=== PATIENT | female | born 1950 | race Caucasian/White ===

== ENCOUNTER 2019-12-04 20:09 | Inpatient (IN) ==
[2019-12-04 20:45] LABS: Basophils # 0.1 K/mcL (0.0-0.2); Basophils % 0.4 %; Eosinophils # 0.1 K/mcL (0.0-0.6); Hematocrit 43.2 % (35.3-44.9); Hemoglobin 14.3 g/dL (11.5-15.4); Immature Granulocytes % 0.3 % (0-4); Lymphocytes # 3.2 K/mcL (0.6-4.6); Lymphocytes % 23.7 %; Mean Corpuscular HGB Conc 33.1 g/dL (31.6-35.5); Mean Corpuscular Volume 96.6 fL (83.0-100.0); Mean Platelet Volume 9.6 fL (9.4-12.4); Monocytes # 0.9 K/mcL (0.0-1.3); Platelet Count 251 K/mcL (140-400); Red Blood Count 4.47 M/mcL (3.82-4.97); Segmented Neutrophils % 67.6 %; White Blood Count 13.4 K/mcL (4.3-11.1)
[2019-12-04] MEDS ORDERED: Isovue-370 500 ML BOTTLE IVP ONE (20:45)
[2019-12-04 20:57] LABS: Prothrombin Time 11.2 Seconds (9.4-12.1)
[2019-12-04 21:00] LABS: Activated Partial Thrombo Time 26.8 Seconds (26.0-36.0)
[2019-12-04 21:10] LABS: Calcium 10.4 mg/dL (8.6-10.3); Potassium 3.8 mEq/L (3.5-5.1)
[2019-12-04 21:20] LABS: Troponin I 2.27 ng/mL (< 0.04)
[2019-12-04] MEDS ORDERED: *HR* Heparin 5,000 UNIT/ML VIAL IVP PRN ×2 (21:37)
[2019-12-04] MEDS ORDERED: *HR* Heparin 5,000 UNIT/ML VIAL IVP ONE (21:37)
[2019-12-04] MEDS: Heparin 25,000UNIT/250ML 1/2NS 25,000 UNIT/250 ML IV.SOLN IVC SCH (21:54)
[2019-12-04] MEDS ORDERED: *HR* Metoprolol 5 MG/5 ML VIAL IVP ONE (21:58)
[2019-12-04] MEDS ORDERED: Perflutren Lipid Microsphere 1.3 ML in 0.9 % Sodium Chloride 8.7 ML IVP PRN (22:10)
[2019-12-04] MEDS ORDERED: Nitroglycerin 0.4 MG TAB.SUBL SL PRN (22:10)
[2019-12-05] MEDS ORDERED: 0.9 % Sodium Chloride 1,000 ML IVC SCH ×2 (03:30→15:30)
[2019-12-05 03:47] LABS: Basophils # 0.1 K/mcL (0.0-0.2); Basophils % 0.6 %; Eosinophils # 0.1 K/mcL (0.0-0.6); Eosinophils % 0.7 %; Hematocrit 41.6 % (35.3-44.9); Hemoglobin 13.7 g/dL (11.5-15.4); Immature Granulocytes % 0.2 % (0-4); Lymphocytes # 2.9 K/mcL (0.6-4.6); Lymphocytes % 26.4 %; Mean Corpuscular HGB Conc 32.9 g/dL (31.6-35.5); Mean Corpuscular Hemoglobin 32.1 pg (28.0-33.3); Mean Corpuscular Volume 97.4 fL (83.0-100.0); Mean Platelet Volume 9.8 fL (9.4-12.4); Monocytes # 0.8 K/mcL (0.0-1.3); Monocytes % 7.6 %; Platelet Count 239 K/mcL (140-400); Red Blood Count 4.27 M/mcL (3.82-4.97); Segmented Neutrophils % 64.5 %; White Blood Count 10.9 K/mcL (4.3-11.1)
[2019-12-05 04:09] LABS: Albumin 4.1 g/dL (3.5-5.7); Albumin/Globulin Ratio 1.3 (1.1-2.2); Bilirubin,Total 0.4 mg/dL (0.3-1.0); Calcium 10.3 mg/dL (8.6-10.3); Chol/HDL Ratio 6.2 (0-4.9); Globulin 3.2 g/dL (2.4-3.5); Potassium 4.4 mEq/L (3.5-5.1); Total Protein 7.3 g/dL (6.4-8.9)
[2019-12-05 04:22] LABS: Thyroid Stimulating Hormone 1.241 mcIU/mL (0.340-5.600)
[2019-12-05 07:06] LABS: Estimated Average Glucose 100 mg/dl
[2019-12-05] MEDS: Aspirin Enteric Coated 81 MG Tablet PO SCH (09:30)
[2019-12-05] MEDS ORDERED: *HR* Midazolam HCl 2 MG/2 ML VIAL ONE (14:12)
[2019-12-05] MEDS ORDERED: *HR* FentaNYL (PF) 100 MCG/2 ML VIAL ONE (14:12)
[2019-12-05] MEDS ORDERED: Heparin 1,000 UNITS/500 mL 500 ML ONE (14:13)
[2019-12-05] MEDS ORDERED: *HR* Heparin 10,000 UNIT/10 ML VIAL ONE (14:13)
[2019-12-05] MEDS ORDERED: Nitroglycerin 1,000 MCG/10 ML VIAL IV ONE (14:13)
[2019-12-05] MEDS ORDERED: ISOVUE-370 200 ML INFUS..BTL ONE (14:13)
[2019-12-05] MEDS ORDERED: 0.9 % Sodium Chloride 2,000 ML ONE (14:13)
[2019-12-05] MEDS: Heparin 25,000UNIT/250ML 1/2NS 25,000 UNIT/250 ML IV.SOLN IVC SCH (21:45)
[2019-12-06 04:11] LABS: Hematocrit 35.8 % (35.3-44.9); Mean Corpuscular HGB Conc 31.8 g/dL (31.6-35.5); Mean Corpuscular Hemoglobin 31.5 pg (28.0-33.3); Mean Corpuscular Volume 98.9 fL (83.0-100.0); Mean Platelet Volume 9.6 fL (9.4-12.4); Platelet Count 184 K/mcL (140-400); Red Blood Count 3.62 M/mcL (3.82-4.97); Red Cell Distribution Width 12.2 % (11.5-14.5); White Blood Count 8.9 K/mcL (4.3-11.1)
[2019-12-06 04:13] LABS: Hemoglobin 11.4 g/dL (11.5-15.4)
[2019-12-06 04:25] LABS: Calcium 8.8 mg/dL (8.6-10.3)
[2019-12-06 08:19] LABS: Prothrombin Time 11.9 Seconds (9.4-12.1)
[2019-12-06 08:29] LABS: Activated Partial Thrombo Time 48.4 Seconds (26.0-36.0)
[2019-12-06] MEDS: Aspirin Enteric Coated 81 MG Tablet PO SCH (09:35)
[2019-12-06] MEDS: Heparin 25,000UNIT/250ML 1/2NS 25,000 UNIT/250 ML IV.SOLN IVC SCH (09:37)
[2019-12-06 13:58] LABS: Bacteria,Urine Few per hpf (None-Few); Bilirubin,Urine Negative (Negative); Blood,Urine Small (Negative); Clarity,Urine Clear (Clear); Color,Urine Light-Yellow (Yellow); Glucose,Urine (UA) Normal (Normal); Ketones,Urine Negative (Negative); Leukocyte Esterase,Urine Negative (Negative); Nitrite,Urine Negative (Negative); Protein,Urine Negative (Neg-Trace); RBC,Urine 0-3 per hpf (0-3); Specific Gravity,Urine 1.017 (1.010-1.025); Squamous Epithelial Cell,Urine Few per hpf (None-Few); Urobilinogen,Urine Normal (Normal); WBC,Urine 0-3 per hpf (0-3)
[2019-12-06 13:59] LABS: Protein/Creatinine Ratio,Urine 0.08 mg/mg (0.00-0.20); Sodium, Urine 108.7 mEq/L
[2019-12-06] MEDS: Chlorhexidine Rinse 15 ML MOUTHWASH MM SCH (23:59)
[2019-12-07 00:51] LABS: Basophils # 0.1 K/mcL (0.0-0.2); Basophils % 0.6 %; Eosinophils # 0.2 K/mcL (0.0-0.6); Eosinophils % 1.9 %; Hemoglobin 11.3 g/dL (11.5-15.4); Immature Granulocytes % 0.2 % (0-4); Lymphocytes # 3.7 K/mcL (0.6-4.6); Mean Corpuscular HGB Conc 32.3 g/dL (31.6-35.5); Mean Corpuscular Volume 99.2 fL (83.0-100.0); Monocytes # 0.8 K/mcL (0.0-1.3); Monocytes % 8.8 %; Neutrophils # 4.1 K/mcL (1.6-8.9); Platelet Count 178 K/mcL (140-400); Red Blood Count 3.53 M/mcL (3.82-4.97); Red Cell Distribution Width 12.2 % (11.5-14.5); Segmented Neutrophils % 46.5 %; White Blood Count 8.8 K/mcL (4.3-11.1)
[2019-12-07 01:11] LABS: Calcium 8.8 mg/dL (8.6-10.3); Potassium 3.6 mEq/L (3.5-5.1)
[2019-12-07 01:12] LABS: Uric Acid 6.7 mg/dL (2.3-7.6)
[2019-12-07 01:40] LABS: Creatinine,Urine 61 mg/dL; Microalbum/Creatinine Ratio,Ur 13 mcg/mg (Less than 30); Microalbumin,Urine 8 mg/L
[2019-12-07] MEDS: Chlorhexidine Rinse 15 ML MOUTHWASH MM SCH ×2 (08:01→19:41)
[2019-12-07] MEDS: Aspirin Enteric Coated 81 MG Tablet PO SCH (08:01)
[2019-12-07] MEDS: Heparin 25,000UNIT/250ML 1/2NS 25,000 UNIT/250 ML IV.SOLN IVC SCH (08:15)
[2019-12-07] MEDS ORDERED: Metoprolol XL (24 HR) Succ 25 MG TAB.ER.24H PO SCH (09:00)
[2019-12-07] MEDS ORDERED: NiCARdipine 2.5 MG/10 ML Syringe IVPB ONE (09:39)
[2019-12-07] MEDS ORDERED: *HR* FentaNYL (PF) 1,000 MCG/20 ML VIAL ONE (09:41)
[2019-12-07] MEDS ORDERED: *HR* Midazolam HCl 5 MG/5 ML VIAL IVP ONE (09:41)
[2019-12-07] MEDS ORDERED: *HR* PHENYLEPHRINE 1,000 MCG/10 ML SYRINGE IVP ONE (09:42)
[2019-12-07] MEDS ORDERED: *HR* Rocuronium Bromide 50 MG/5 ML VIAL ONE (09:42)
[2019-12-07] MEDS ORDERED: EPINEPHrine 1 MG/ML VIAL ONE (09:47)
[2019-12-07] MEDS ORDERED: Papaverine 60 MG/2 ML VIAL IVP ONE (10:20)
[2019-12-07] MEDS ORDERED: CeFAZolin Syr 2,000MG/20 ML 2,000 MG/20 ML SYRINGE IVPB ONE (12:00)
[2019-12-07 12:31] LABS: ABG Base Excess -2 mEq/L (-2 to 3); ABG Chloride 108 mEq/L (98-107); ABG Glucose 92 mg/dL (60-95); ABG HCO3 23 mEq/L (21-27); ABG Ionized Calcium 1.22 mmol/L (1.15-1.35); ABG Oxygen Saturation 100 % (95-98); ABG PCO2 36 mmHg (35-45); ABG PH 7.41 pH Units (7.32-7.45); ABG PO2 504 mmHg (85-104); ABG TCO2 24 mEq/L (20-26)
[2019-12-07] MEDS ORDERED: Norepinephrine 4 MG in 0.9 % Sodium Chloride 250 ML IVC PRN (12:40)
[2019-12-07] MEDS ORDERED: Dextrose 50 % in Water (Vial) 30 ML, Sodium Bicarbonate 20 MEQ, Lidocaine 1% 5 ML, Insu... TH ONE ×3 (12:40)
[2019-12-07] MEDS ORDERED: Heparin 15,000 UNIT in 0.9 % Sodium Chloride 500 ML IV ONE (12:40)
[2019-12-07] MEDS ORDERED: Insulin Human Regular 100 UNIT in 0.9 % Sodium Chloride 100 ML IV PRN (12:40)
[2019-12-07] MEDS ORDERED: Dextrose 50 % in Water (Vial) 30 ML, Sodium Bicarbonate 20 MEQ, Potassium Chloride 15 M... TH ONE (12:40)
[2019-12-07 13:23] LABS: ABG Base Excess -2 mEq/L (-2 to 3); ABG Chloride 112 mEq/L (98-107); ABG Glucose 108 mg/dL (60-95); ABG HCO3 21 mEq/L (21-27); ABG Ionized Calcium 1.04 mmol/L (1.15-1.35); ABG Oxygen Saturation 100 % (95-98); ABG PCO2 29 mmHg (35-45); ABG PH 7.47 pH Units (7.32-7.45); ABG PO2 206 mmHg (85-104); ABG TCO2 22 mEq/L (20-26)
[2019-12-07] MEDS ORDERED: Tranexamic Acid 1,000 MG/10 ML VIAL ONE (13:32)
[2019-12-07] MEDS ORDERED: niCARdipine 20 MG/200 ML MLS IVC ONE (13:41)
[2019-12-07] MEDS ORDERED: Albumin Human 5% 12.5 GM/250 ML IV.SOLN ONE (13:41)
[2019-12-07 14:02] LABS: ABG Base Excess 5 mEq/L (-2 to 3); ABG Chloride 101 mEq/L (98-107); ABG Glucose 203 mg/dL (60-95); ABG HCO3 27 mEq/L (21-27); ABG Ionized Calcium 0.97 mmol/L (1.15-1.35); ABG Oxygen Saturation 100 % (95-98); ABG PCO2 31 mmHg (35-45); ABG PH 7.55 pH Units (7.32-7.45); ABG PO2 604 mmHg (85-104); ABG TCO2 28 mEq/L (20-26)
[2019-12-07 14:49] LABS: ABG Base Excess 1 mEq/L (-2 to 3); ABG Chloride 106 mEq/L (98-107); ABG Glucose 119 mg/dL (60-95); ABG HCO3 25 mEq/L (21-27); ABG Ionized Calcium 1.07 mmol/L (1.15-1.35); ABG Oxygen Saturation 100 % (95-98); ABG PCO2 39 mmHg (35-45); ABG PH 7.42 pH Units (7.32-7.45); ABG PO2 533 mmHg (85-104); ABG TCO2 27 mEq/L (20-26)
[2019-12-07] MEDS ORDERED: Potassium Chloride 40 MEQ/200 ML BAG IVPB PRN (15:27)
[2019-12-07] MEDS ORDERED: Ondansetron 4 MG/2 ML VIAL IVP PRN (15:27)
[2019-12-07] MEDS ORDERED: Acetaminophen 325 MG TABLET PO PRN (15:27)
[2019-12-07] MEDS ORDERED: Insulin Regular, Human 100 UNIT/ML IV PRN (15:27)
[2019-12-07] MEDS ORDERED: *HR* OxyCODONE/APAP 5/325 TABLET PO PRN (15:27)
[2019-12-07] MEDS ORDERED: *HR* Promethazine 25 MG/ML VIAL IM PRN (15:27)
[2019-12-07] MEDS ORDERED: Naloxone 0.4 MG/ML INJ IVP PRN (15:27)
[2019-12-07] MEDS ORDERED: *HR* FentaNYL (PF) 100 MCG/2 ML VIAL IVP PRN (15:27)
[2019-12-07] MEDS ORDERED: *HR* Dextrose 50 % in Water (Vial) 50 ML VIAL IVP PRN (15:27)
[2019-12-07] MEDS ORDERED: Insulin Human Regular 100 UNIT in 0.9 % Sodium Chloride 100 ML IVC SCH (15:30)
[2019-12-07] MEDS: Albumin Human 5% 12.5 GM/250 ML IV.SOLN IVPB PRN ×2 (15:35→21:35)
[2019-12-07] MEDS ORDERED: Tranexamic Acid 1,000 MG/10 ML VIAL IR ONE (15:39)
[2019-12-07] MEDS ORDERED: Lidocaine 2% Syringe 100 MG/5 ML IVP ONE (15:39)
[2019-12-07] MEDS ORDERED: *HR* Heparin 10,000 UNIT/10 ML VIAL IR ONE (15:39)
[2019-12-07] MEDS ORDERED: *HR* Phenylephrine 10 MG/ML VIAL IVC ONE (15:39)
[2019-12-07] MEDS ORDERED: *HR* Magnesium Sulfate 2 GM/50 ML PIGGYBACK IVPB ONE (15:39)
[2019-12-07] MEDS ORDERED: Albumin Human 25% 25 GM/100 ML IV.SOLN IVPB ONE (15:39)
[2019-12-07] MEDS ORDERED: Mannitol 25% vial 12.5 GM/50 ML VIAL IVPB ONE (15:39)
[2019-12-07 15:51] LABS: Hematocrit 28.9 % (35.3-44.9); Immature Granulocytes % 0.6 % (0-4); Monocytes % 5.2 %; Red Cell Distribution Width 12.4 % (11.5-14.5)
[2019-12-07 15:53] LABS: Basophils % 0.4 %; Eosinophils # 0.1 K/mcL (0.0-0.6); Eosinophils % 0.9 %; Hemoglobin 9.8 g/dL (11.5-15.4); Immature Platelets 2.7 % (1.1-6.1); Lymphocytes # 2.3 K/mcL (0.6-4.6); Lymphocytes % 22.2 %; Mean Corpuscular HGB Conc 33.9 g/dL (31.6-35.5); Mean Corpuscular Volume 94.4 fL (83.0-100.0); Mean Platelet Volume 9.6 fL (9.4-12.4); Monocytes # 0.5 K/mcL (0.0-1.3); Neutrophils # 7.3 K/mcL (1.6-8.9); Platelet Count 98 K/mcL (140-400); Red Blood Count 3.06 M/mcL (3.82-4.97); Segmented Neutrophils % 70.7 %; White Blood Count 10.3 K/mcL (4.3-11.1)
[2019-12-07 15:53] LABS: ABG Base Excess 1 mEq/L (-2 to 3); ABG HCO3 24 mEq/L (21-27); ABG Oxygen Saturation 100 % (95-98); ABG PCO2 32 mmHg (35-45); ABG PH 7.48 pH Units (7.32-7.45); ABG PO2 224 mmHg (85-104); ABG TCO2 25 mEq/L (20-26); Blood Gas Modality ASSIST CONTROL; Blood Gas VT 500 cc
[2019-12-07 16:00] LABS: INR 1.5; Prothrombin Time 17.3 Seconds (9.4-12.1)
[2019-12-07 16:03] LABS: Activated Partial Thrombo Time 24.6 Seconds (26.0-36.0)
[2019-12-07 16:08] LABS: BUN/Creatinine Ratio 19 (6-26); Blood Urea Nitrogen 19 mg/dL (8-23); Calcium 8.3 mg/dL (8.6-10.3); Carbon Dioxide 24 mEq/L (23-29); Chloride 109 mEq/L (98-107); Glucose 71 mg/dL (70-105); Magnesium 2.3 mg/dL (1.6-2.6); Osmolality,Calculated 295 (280-300); Potassium 3.5 mEq/L (3.5-5.1); Sodium 142 mEq/L (136-145); eGFR For African Americans > 60 (> 60); eGFR For Non-African Americans 54 (> 60)
[2019-12-07] MEDS: 0.9 % Sodium Chloride 1,000 ML IVC SCH (18:01)
[2019-12-07] MEDS: CeFAZolin 2 GM/120 ML BAG IVPB SCH (19:42)
[2019-12-07 20:11] LABS: ABG Base Excess 2 mEq/L (-2 to 3); ABG HCO3 26 mEq/L (21-27); ABG Oxygen Saturation 99 % (95-98); ABG PCO2 37 mmHg (35-45); ABG PH 7.45 pH Units (7.32-7.45); ABG PO2 146 mmHg (85-104); ABG TCO2 27 mEq/L (20-26); Blood Gas Modality ASSIST CONTROL; Blood Gas VT 500 cc
[2019-12-07] MEDS: niCARdipine 20 MG/200 ML MLS IVC SCH ×2 (21:35→23:39)
[2019-12-07] MEDS: Norepinephrine 4 MG/254 ML IV.SOLN IVC SCH (21:36)
[2019-12-07 22:18] LABS: ABG Base Excess 1 mEq/L (-2 to 3); ABG HCO3 27 mEq/L (21-27); ABG Oxygen Saturation 94 % (95-98); ABG PCO2 44 mmHg (35-45); ABG PH 7.39 pH Units (7.32-7.45); ABG PO2 73 mmHg (85-104); ABG TCO2 28 mEq/L (20-26)
[2019-12-08] MEDS: niCARdipine 20 MG/200 ML MLS IVC SCH ×2 (03:38→04:18)
[2019-12-08] MEDS: CeFAZolin 2 GM/120 ML BAG IVPB SCH (04:15)
[2019-12-08 04:27] LABS: Basophils % 0.2 %; Hematocrit 32.5 % (35.3-44.9); Hemoglobin 10.9 g/dL (11.5-15.4); Immature Granulocytes % 0.4 % (0-4); Lymphocytes # 0.8 K/mcL (0.6-4.6); Lymphocytes % 7.4 %; Mean Corpuscular HGB Conc 33.5 g/dL (31.6-35.5); Mean Corpuscular Hemoglobin 32.4 pg (28.0-33.3); Mean Corpuscular Volume 96.7 fL (83.0-100.0); Mean Platelet Volume 9.9 fL (9.4-12.4); Monocytes # 0.9 K/mcL (0.0-1.3); Monocytes % 8.1 %; Neutrophils # 9.5 K/mcL (1.6-8.9); Platelet Count 128 K/mcL (140-400); Red Blood Count 3.36 M/mcL (3.82-4.97); Red Cell Distribution Width 12.6 % (11.5-14.5); Segmented Neutrophils % 83.9 %; White Blood Count 11.3 K/mcL (4.3-11.1)
[2019-12-08 04:30] LABS: VBG Ionized Calcium 1.12 mmol/L (1.15-1.35)
[2019-12-08 04:48] LABS: Calcium 8.2 mg/dL (8.6-10.3)
[2019-12-08] MEDS: Albumin Human 5% 12.5 GM/250 ML IV.SOLN IVPB PRN ×2 (06:10→06:28)
[2019-12-08] MEDS: 0.9 % Sodium Chloride 1,000 ML IVC SCH ×3 (06:21→21:49)
[2019-12-08] MEDS: Norepinephrine 4 MG/254 ML IV.SOLN IVC SCH (06:29)
[2019-12-08] MEDS: Chlorhexidine Rinse 15 ML MOUTHWASH MM SCH ×2 (08:20→20:21)
[2019-12-08] MEDS: Aspirin Enteric Coated 81 MG Tablet PO SCH (08:20)
[2019-12-08] MEDS ORDERED: Pantoprazole 40 MG VIAL IVP SCH (09:00)
[2019-12-08] MEDS ORDERED: Acetaminophen 325 MG TABLET PO PRN (10:09)
[2019-12-08] MEDS ORDERED: Dextrose Gel 15 GM/37.5 ML TUBE PO PRN ×2 (10:09)
[2019-12-08] MEDS ORDERED: D5% in Water 1,000 ML IVC PRN (10:09)
[2019-12-08] MEDS ORDERED: *HR* Dextrose 50 % in Water (Vial) 50 ML VIAL IVP PRN (10:09)
[2019-12-08] MEDS ORDERED: Nitroglycerin 0.4 MG TAB.SUBL SL PRN (10:09)
[2019-12-08] MEDS ORDERED: Naloxone 0.4 MG/ML INJ IVP PRN (10:09)
[2019-12-08] MEDS ORDERED: *HR* Promethazine 25 MG/ML VIAL IM PRN (10:09)
[2019-12-08] MEDS ORDERED: Ondansetron 4 MG/2 ML VIAL IVP PRN (10:09)
[2019-12-08] MEDS: Insulin LISPRO 300 UNITS/3 ML VIAL SQ SCH ×4 (11:33→20:22)
[2019-12-08] MEDS ORDERED: Calcium Gluconate 1gm/50mL 1 GM/50 ML BAG IVPB ONE (13:27)
[2019-12-08] MEDS: *HR* OxyCODONE/APAP 5/325 TABLET PO PRN (17:14)
[2019-12-08] MEDS: *HR* Heparin 5,000 UNIT/ML VIAL SQ SCH (17:16)
[2019-12-09] MEDS: *HR* OxyCODONE/APAP 5/325 TABLET PO PRN ×2 (03:33→13:10)
[2019-12-09 03:44] LABS: VBG Ionized Calcium 1.16 mmol/L (1.15-1.35)
[2019-12-09 03:51] LABS: Basophils % 0.4 %; Eosinophils # 0.1 K/mcL (0.0-0.6); Eosinophils % 0.5 %; Hematocrit 28.9 % (35.3-44.9); Immature Granulocytes % 0.6 % (0-4); Lymphocytes # 1.6 K/mcL (0.6-4.6); Lymphocytes % 16.2 %; Mean Corpuscular HGB Conc 32.2 g/dL (31.6-35.5); Mean Corpuscular Hemoglobin 32.6 pg (28.0-33.3); Mean Corpuscular Volume 101.4 fL (83.0-100.0); Mean Platelet Volume 10.3 fL (9.4-12.4); Monocytes % 9.5 %; Neutrophils # 7.4 K/mcL (1.6-8.9); Platelet Count 109 K/mcL (140-400); Red Blood Count 2.85 M/mcL (3.82-4.97); Red Cell Distribution Width 13.1 % (11.5-14.5); Segmented Neutrophils % 72.8 %; White Blood Count 10.1 K/mcL (4.3-11.1)
[2019-12-09 03:54] LABS: Hemoglobin 9.3 g/dL (11.5-15.4)
[2019-12-09 03:59] LABS: Albumin 3.4 g/dL (3.5-5.7); Calcium 8.2 mg/dL (8.6-10.3); Magnesium 1.8 mg/dL (1.6-2.6); Potassium 3.9 mEq/L (3.5-5.1)
[2019-12-09] MEDS: *HR* Heparin 5,000 UNIT/ML VIAL SQ SCH ×2 (05:09→18:15)
[2019-12-09] MEDS: Pantoprazole 40 MG VIAL IVP SCH (08:09)
[2019-12-09] MEDS: Chlorhexidine Rinse 15 ML MOUTHWASH MM SCH ×2 (08:09→20:22)
[2019-12-09] MEDS: Aspirin Enteric Coated 81 MG Tablet PO SCH (08:09)
[2019-12-09] MEDS: Insulin LISPRO 300 UNITS/3 ML VIAL SQ SCH ×4 (08:09→20:24)
[2019-12-09] MEDS: 0.9 % Sodium Chloride 1,000 ML IVC SCH ×3 (11:18→20:22)
[2019-12-10] MEDS: 0.9 % Sodium Chloride 1,000 ML IVC SCH ×3 (04:48→20:57)
[2019-12-10] MEDS: *HR* Heparin 5,000 UNIT/ML VIAL SQ SCH ×2 (04:48→16:26)
[2019-12-10 05:41] LABS: Basophils % 0.4 %; Eosinophils # 0.1 K/mcL (0.0-0.6); Eosinophils % 1.2 %; Hematocrit 26.6 % (35.3-44.9); Hemoglobin 8.7 g/dL (11.5-15.4); Immature Granulocytes % 0.3 % (0-4); Lymphocytes # 1.1 K/mcL (0.6-4.6); Lymphocytes % 14.3 %; Mean Corpuscular HGB Conc 32.7 g/dL (31.6-35.5); Mean Corpuscular Volume 100.8 fL (83.0-100.0); Mean Platelet Volume 10.6 fL (9.4-12.4); Monocytes # 0.8 K/mcL (0.0-1.3); Monocytes % 10.4 %; Neutrophils # 5.7 K/mcL (1.6-8.9); Platelet Count 107 K/mcL (140-400); Red Blood Count 2.64 M/mcL (3.82-4.97); Red Cell Distribution Width 12.9 % (11.5-14.5); Segmented Neutrophils % 73.4 %; White Blood Count 7.8 K/mcL (4.3-11.1)
[2019-12-10 06:03] LABS: BUN/Creatinine Ratio 21 (6-26); Blood Urea Nitrogen 21 mg/dL (8-23); Calcium 7.9 mg/dL (8.6-10.3); Carbon Dioxide 23 mEq/L (23-29); Chloride 109 mEq/L (98-107); Glucose 119 mg/dL (70-105); Osmolality,Calculated 288 (280-300); Potassium 3.7 mEq/L (3.5-5.1); Sodium 137 mEq/L (136-145); eGFR For African Americans > 60 (> 60); eGFR For Non-African Americans 56 (> 60)
[2019-12-10] MEDS: Insulin LISPRO 300 UNITS/3 ML VIAL SQ SCH ×4 (08:04→21:21)
[2019-12-10] MEDS: Pantoprazole 40 MG VIAL IVP SCH (08:11)
[2019-12-10] MEDS: Aspirin Enteric Coated 81 MG Tablet PO SCH (08:11)
[2019-12-10] MEDS: Chlorhexidine Rinse 15 ML MOUTHWASH MM SCH ×2 (08:11→20:56)
[2019-12-11] MEDS: *HR* Heparin 5,000 UNIT/ML VIAL SQ SCH ×2 (05:20→17:02)
[2019-12-11] MEDS: 0.9 % Sodium Chloride 1,000 ML IVC SCH ×3 (05:20→21:38)
[2019-12-11 07:50] LABS: BUN/Creatinine Ratio 19 (6-26); Blood Urea Nitrogen 19 mg/dL (8-23); Calcium 8.1 mg/dL (8.6-10.3); Carbon Dioxide 23 mEq/L (23-29); Chloride 110 mEq/L (98-107); Glucose 120 mg/dL (70-105); Osmolality,Calculated 289 (280-300); Potassium 3.6 mEq/L (3.5-5.1); Sodium 138 mEq/L (136-145); eGFR For African Americans > 60 (> 60); eGFR For Non-African Americans 56 (> 60)
[2019-12-11] MEDS: Chlorhexidine Rinse 15 ML MOUTHWASH MM SCH ×2 (08:44→21:15)
[2019-12-11] MEDS: Pantoprazole 40 MG VIAL IVP SCH (08:45)
[2019-12-11] MEDS: Aspirin Enteric Coated 81 MG Tablet PO SCH (08:45)
[2019-12-11] MEDS: Insulin LISPRO 300 UNITS/3 ML VIAL SQ SCH ×4 (10:02→21:16)
[2019-12-12 05:14] LABS: Basophils % 0.6 %; Eosinophils # 0.2 K/mcL (0.0-0.6); Eosinophils % 2.1 %; Hematocrit 29.5 % (35.3-44.9); Hemoglobin 9.4 g/dL (11.5-15.4); Immature Granulocytes % 0.4 % (0-4); Lymphocytes # 1.6 K/mcL (0.6-4.6); Lymphocytes % 21.7 %; Mean Corpuscular HGB Conc 31.9 g/dL (31.6-35.5); Mean Corpuscular Hemoglobin 31.9 pg (28.0-33.3); Monocytes # 0.7 K/mcL (0.0-1.3); Monocytes % 9.8 %; Neutrophils # 4.7 K/mcL (1.6-8.9); Platelet Count 191 K/mcL (140-400); Red Blood Count 2.95 M/mcL (3.82-4.97); Red Cell Distribution Width 13.1 % (11.5-14.5); Segmented Neutrophils % 65.4 %; White Blood Count 7.2 K/mcL (4.3-11.1)
[2019-12-12 05:34] LABS: BUN/Creatinine Ratio 19 (6-26); Blood Urea Nitrogen 19 mg/dL (8-23); Calcium 8.6 mg/dL (8.6-10.3); Carbon Dioxide 23 mEq/L (23-29); Chloride 110 mEq/L (98-107); Glucose 110 mg/dL (70-105); Magnesium 1.9 mg/dL (1.6-2.6); Osmolality,Calculated 293 (280-300); Potassium 3.7 mEq/L (3.5-5.1); Sodium 140 mEq/L (136-145); eGFR For African Americans > 60 (> 60); eGFR For Non-African Americans 54 (> 60)
[2019-12-12] MEDS: *HR* Heparin 5,000 UNIT/ML VIAL SQ SCH ×2 (06:14→17:17)
[2019-12-12] MEDS: Pantoprazole 40 MG VIAL IVP SCH (08:26)
[2019-12-12] MEDS: Chlorhexidine Rinse 15 ML MOUTHWASH MM SCH ×2 (08:26→21:45)
[2019-12-12] MEDS: Aspirin Enteric Coated 81 MG Tablet PO SCH (08:27)
[2019-12-12] MEDS: Insulin LISPRO 300 UNITS/3 ML VIAL SQ SCH ×4 (09:19→21:45)
[2019-12-13] MEDS: *HR* Heparin 5,000 UNIT/ML VIAL SQ SCH (06:06)
[2019-12-13] MEDS: Insulin LISPRO 300 UNITS/3 ML VIAL SQ SCH (07:32)
[2019-12-13] MEDS: Pantoprazole 40 MG VIAL IVP SCH (07:36)
[2019-12-13] MEDS: Chlorhexidine Rinse 15 ML MOUTHWASH MM SCH (07:36)
[2019-12-13] MEDS: Aspirin Enteric Coated 81 MG Tablet PO SCH (07:36)
[2019-12-13 07:44] VITALS: BP 123/63
== END 2019-12-13 10:48 | disposition home or self-care (01) | DRG 234 ==
LOC: 3BNU 20:09 → EMEROOARM 20:09 → 3BNU 23:44 → SUATTDRO 12-06 13:54 → ICNU 12-07 15:57 → 2NNU 12-09 21:01
PROVIDERS: ADMIT Internal Medicine; ATTEND Internal Medicine